=== PATIENT | female | born 1930 | race Caucasian/White ===

== ENCOUNTER → 2016-08-21 | Outpatient (CLI) | payer OTHER ==
[~2016-08-21] MED LIST: CLC100 PO; CLOP1TAB15 PO; DULO-24 PO; INSUINJ12 PO; LISI-461 PO; METO50TA16 PO; PRED1SUS3 OPR; SALI1SPR3; SODI2SOL OPL
[2016-08-21 08:36] LABS: ESTIMATED AVERAGE GLUCOSE 134 mg/dl; HA1C FLAG Normal (Normal)
== END ==
LOC: C.LABCC 08:18
PROVIDERS: ATTEND Internal Medicine
DX: E11.9 Type 2 diabetes mellitus without complications (principal)

== ENCOUNTER → 2016-12-12 | Outpatient (CLI) | payer OTHER ==
[2016-12-12 10:22] LABS: BASO % 0.7 %; BASO ABS # 0.05 K/uL (0-0.2); COMPLETE YES; EOS % 7.1 %; HEMATOCRIT 33.3 % (37-47); IG% 0.1 %; LYMPH % 32.4 %; LYMPH ABS # 2.23 K/uL (1.2-3.4); MEAN CELL VOLUME 83.5 fL (80-100); MEAN CORPUSCULAR HEMOGLOBIN 26.3 pg (25-34); MEAN CORPUSCULAR HGB CONC 31.5 g/dl (32-36); MONO % 10.9 %; NEUT % 48.8 %; PLATELET COUNT 206 K/uL (130-400); RED BLOOD COUNT 3.99 M/uL (4.2-5.4); WHITE BLOOD COUNT 6.88 K/uL (4.8-10.8)
[2016-12-12 10:32] LABS: ALT/SGPT 22 U/L (12-78); BLOOD UREA NITROGEN 25 mg/dl (7-18); BUN/CREATININE RATIO 22.9 (10-20); CARBON DIOXIDE 23 mmol/L (21-32); CHLORIDE 110 mmol/L (98-107); GLUCOSE 114 mg/dl (70-99); POTASSIUM 4.2 mmol/L (3.5-5.1); SODIUM 142 mmol/L (136-145)
[2016-12-12 10:35] LABS: ALB/GLOB RATIO 0.7 (0.9-2); ALKALINE PHOSPHATASE 68 U/L (45-117); AST/SGOT 25 U/L (15-37)
[2016-12-12 10:36] LABS: CALCIUM 8.9 mg/dl (8.5-10.1)
[2016-12-12 11:14] LABS: ESTIMATED AVERAGE GLUCOSE 131 mg/dl; HA1C FLAG Normal (Normal)
== END ==
LOC: C.LABCC 08:52
PROVIDERS: ATTEND Internal Medicine
DX: E11.9 Type 2 diabetes mellitus without complications (principal); I10 Essential (primary) hypertension

== ENCOUNTER → 2016-12-20 | Outpatient (CLI) | payer OTHER ==
[2016-12-20 08:47] LABS: ESTIMATED AVERAGE GLUCOSE 131 mg/dl; HA1C FLAG Normal (Normal)
== END ==
LOC: C.LABCC 08:02
PROVIDERS: ATTEND Internal Medicine
DX: E11.9 Type 2 diabetes mellitus without complications (principal)

== ENCOUNTER → 2017-06-04 | Outpatient (CLI) | payer OTHER ==
[2017-06-04 09:15] LABS: BASO % 0.6 %; BASO ABS # 0.04 K/uL (0-0.2); COMPLETE YES; EOS % 8.5 %; HEMATOCRIT 29.6 % (37-47); IG% 0.1 %; LYMPH % 34.6 %; LYMPH ABS # 2.35 K/uL (1.2-3.4); MEAN CELL VOLUME 75.9 fL (80-100); MEAN CORPUSCULAR HEMOGLOBIN 23.1 pg (25-34); MEAN CORPUSCULAR HGB CONC 30.4 g/dl (32-36); MEAN PLATELET VOLUME 10.2 fL (7.4-10.4); MONO % 10.9 %; NEUT % 45.3 %; PLATELET COUNT 195 K/uL (130-400)
[2017-06-04 09:27] LABS: ALT/SGPT 17 U/L (12-78); BLOOD UREA NITROGEN 26 mg/dl (7-18); BUN/CREATININE RATIO 21.6 (10-20); CALCIUM 8.7 mg/dl (8.5-10.1); CARBON DIOXIDE 27 mmol/L (21-32); CHLORIDE 108 mmol/L (98-107); CHOLESTEROL 155 mg/dl (0-200); CREATININE 1.22 mg/dl (0.60-1.20); GLUCOSE 108 mg/dl (70-99); POTASSIUM 4.4 mmol/L (3.5-5.1); SODIUM 141 mmol/L (136-145); TRIGLYCERIDES 166 mg/dl (0-150); VERY LOW DENSITY LIPOPROT CALC 33 mg/dl
[2017-06-04 09:38] LABS: ALB/GLOB RATIO 0.7 (0.9-2); ALKALINE PHOSPHATASE 69 U/L (45-117); AST/SGOT 21 U/L (15-37); CHOLESTEROL/HDL RATIO 4.8; FERRITIN 6.3 ng/ml (8.0-388.0); HDL CHOLESTEROL 32 mg/dl; LDL CHOLESTEROL CALCULATED 90 mg/dl; TOTAL IRON BINDING CAPACITY 303 mcg/dl (250-450)
[2017-06-04 10:14] LABS: ESTIMATED AVERAGE GLUCOSE 126 mg/dl; HA1C FLAG Normal (Normal)
== END ==
LOC: C.LABCC 08:42
PROVIDERS: ATTEND Internal Medicine
DX: D64.9 Anemia, unspecified (principal); E11.9 Type 2 diabetes mellitus without complications; E78.5 Hyperlipidemia, unspecified; I10 Essential (primary) hypertension; M19.90 Unspecified osteoarthritis, unspecified site

== ENCOUNTER → 2017-07-09 | Outpatient (CLI) | payer OTHER ==
[~2017-07-09] MED LIST changes: +SALI-3; -SALI1SPR3
[2017-07-09 10:00] LABS: BASO % 0.9 %; BASO ABS # 0.05 K/uL (0-0.2); EOS % 8.6 %; EOS ABS # 0.48 K/uL (0-0.5); HEMATOCRIT 37.3 % (37-47); HEMOGLOBIN 11.8 g/dL (12.0-16.0); IG# 0.01 K/uL (0.00-0.02); LYMPH % 36.3 %; LYMPH ABS # 2.02 K/uL (1.2-3.4); MEAN CELL VOLUME 82.9 fL (80-100); MEAN CORPUSCULAR HEMOGLOBIN 26.2 pg (25-34); MEAN CORPUSCULAR HGB CONC 31.6 g/dl (32-36); MONO % 8.6 %; MONO ABS # 0.48 K/uL (0.11-0.59); NEUT % 45.4 %; NEUT ABS # 2.52 K/uL (1.4-6.5); PLATELET COUNT 165 K/uL (130-400); RED CELL DISTRIBUTION WIDTH CV 21.7 % (11.5-14.5); RED CELL DISTRIBUTION WIDTH SD 65.4 fL (36.4-46.3); WHITE BLOOD COUNT 5.56 K/uL (4.8-10.8)
--- NOTE | 2017-07-18 13:35 | CODING QUERY MEDICAL NECESSITY ---
SUPPORTING DIAGNOSIS NEEDED A supporting diagnosis is required for the test/procedure performed on this patient in order for us to be reimbursed by the patient's insurance. Please provide a supporting diagnosis for the following test/procedure listed below next to the test name along with your signature. *If there is no additional diagnosis for this patient that would support the following test/procedure please document that below next to the test/procedure. Test(s)/Procedure(s) that require a supporting diagnosis: * VITAMIN D, 25-HYDROXY DIAGNOSIS: * FOLIC ACID DIAGNOSIS: Provider Signature: Date: Thank you Molly Garcia [employer] Information Management Once completed, please kindly fax back to [phone] For questions please call [phone]
== END ==
LOC: C.LABCC 09:10
PROVIDERS: ATTEND Internal Medicine
DX: D64.9 Anemia, unspecified (principal); E55.9 Vitamin D deficiency, unspecified

== ENCOUNTER → 2017-10-10 | Outpatient (CLI) | payer OTHER ==
[2017-10-10 17:53] LABS: INFLUENZA B ANTIGEN Neg for Influ B (NEG)
--- NOTE | 2017-10-22 08:31 | CODING QUERY NO DIAGNOSIS ---
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 Please assist us with providing a diagnosis/symptom for the test(s) below: A diagnosis/symptom was not documented on your Order. A valid diagnosis/symptom is required to bill all insurances. Please remember that we are unable to code a diagnosis of rule out, probable, possible, questionable, or suspected. Tests that require a diagnosis: DOS: 10/10/17 * INFLUENZA VIR A OR B ANTIGEN DIAGNOSIS: Provider Signature: Date: Thank you Molly Garcia [employer] Information Management Once completed, please kindly fax back to [phone] For questions please call [phone]
== END ==
LOC: C.LABCC 16:40
PROVIDERS: ATTEND Internal Medicine
DX: R05 Cough (principal); R50.9 Fever, unspecified

== ENCOUNTER → 2017-10-11 | Outpatient (CLI) | payer OTHER ==
[~2017-10-11] MED LIST changes: -SALI-3; +SALI1SPR3
[2017-10-11 10:03] LABS: BASO % 1.5 %; BASO ABS # 0.08 K/uL (0-0.2); EOS % 6.9 %; EOS ABS # 0.36 K/uL (0-0.5); HEMATOCRIT 38.3 % (37-47); HEMOGLOBIN 13.5 g/dL (12.0-16.0); IG# 0.01 K/uL (0.00-0.02); LYMPH % 31.2 %; LYMPH ABS # 1.64 K/uL (1.2-3.4); MEAN CORPUSCULAR HEMOGLOBIN 32.1 pg (25-34); MEAN CORPUSCULAR HGB CONC 35.2 g/dl (32-36); MEAN PLATELET VOLUME 9.9 fL (7.4-10.4); MONO ABS # 0.89 K/uL (0.11-0.59); NEUT % 43.2 %; NEUT ABS # 2.27 K/uL (1.4-6.5); PLATELET COUNT 140 K/uL (130-400); RED CELL DISTRIBUTION WIDTH CV 13.2 % (11.5-14.5); RED CELL DISTRIBUTION WIDTH SD 43.7 fL (36.4-46.3); WHITE BLOOD COUNT 5.25 K/uL (4.8-10.8)
[2017-10-11 10:11] LABS: BLOOD UREA NITROGEN 19 mg/dl (7-18); CALCIUM 8.3 mg/dl (8.5-10.1); CARBON DIOXIDE 28 mmol/L (21-32); GLUCOSE 110 mg/dl (70-99); POTASSIUM 4.3 mmol/L (3.5-5.1); SODIUM 139 mmol/L (136-145)
== END ==
LOC: C.LABCC 10:04
PROVIDERS: ATTEND Internal Medicine
DX: R05 Cough (principal); R50.9 Fever, unspecified

== ENCOUNTER → 2018-02-18 | Outpatient (CLI) | payer OTHER ==
[~2018-02-18] MED LIST changes: +SALI-3; -SALI1SPR3
[2018-02-18 10:11] LABS: ALBUMIN 2.7 gm/dl (3.4-5.0); ALKALINE PHOSPHATASE 62 U/L (45-117); ALT/SGPT 18 U/L (12-78); AST/SGOT 28 U/L (15-37); BLOOD UREA NITROGEN 20 mg/dl (7-18); CALCIUM 8.3 mg/dl (8.5-10.1); CARBON DIOXIDE 26 mmol/L (21-32); CHOLESTEROL 134 mg/dl (0-200); CREATININE 1.01 mg/dl (0.60-1.20); GLUCOSE 105 mg/dl (70-99); LDL CHOLESTEROL CALCULATED 71 mg/dl; POTASSIUM 4.3 mmol/L (3.5-5.1); SODIUM 140 mmol/L (136-145); TOTAL PROTEIN 6.3 gm/dl (6.4-8.2)
== END | disposition home or self-care (01) ==
LOC: C.LABCC 09:16
PROVIDERS: ATTEND Internal Medicine
DX: E11.9 Type 2 diabetes mellitus without complications (principal); I65.29 Occlusion and stenosis of unspecified carotid artery

== ENCOUNTER 2019-10-31 06:54 | Inpatient (IN) ==
[2019-10-31] MEDS ORDERED: RAPID SEQUENCE INDUCTION BAG ONE (07:09)
[2019-10-31 07:24] LABS: iSTAT Creatinine 0.8 mg/dl (0.6-1.3); iSTAT Hemoglobin 13.9 g/dl (12.0-16.0); iSTAT Ionized Calcium 1.11 mmol/l (1.12-1.32); iSTAT Potassium 4.2 mmol/L (3.3-5.0)
[2019-10-31] MEDS ORDERED: PANTOPRAZOLE BOLUS/DRIP 1 EA IV STA (07:24)
[2019-10-31] MEDS ORDERED: PANTOprazole 80 MG in DEXTROSE 5% 100 ML IV ONE (07:24)
[2019-10-31] MEDS ORDERED: ONDANSETRON INJ 2 MG/ML 2 ML VIAL IV STA (07:24)
[2019-10-31] MEDS ORDERED: STAT IV Infusion **Titration per Protocol STA ×2 (07:24→09:09)
[2019-10-31] MEDS ORDERED: SODIUM CHLORIDE 0.9% 1000ML 500 ML IV ONE (07:26)
[2019-10-31] MEDS ORDERED: SODIUM CHLORIDE 0.9% 1000ML 1,000 ML IV SCH (07:30)
[2019-10-31] MEDS ORDERED: fentaNYL DRIP 1,250 MCG/250 ML BAG IV SCH (07:30)
[2019-10-31] MEDS ORDERED: MIDAZOLAM HCL 125 MG/250 ML BAG IV SCH (07:30)
--- NOTE | 2019-10-31 07:47 | XRay Report ---
XR chest 1V portable HISTORY: 89 years-old Female post ETT acute respiratory failure COMPARISON: Chest radiograph 01/21/2010 TECHNIQUE: Portable supine AP view of the chest FINDINGS: Cardiac silhouette is enlarged, unchanged. Pulmonary vascular congestion with extensive mixed bilater al interstitial and alveolar opacities. Trace pleural effusions. Patient is slightly rotated. Mild ri ght diaphragmatic elevation. No pneumothorax. Endotracheal tube terminates 1.0 cm superior to the car ean. Degenerative changes of the shoulders and spine. Moderate to marked gaseous distention of the st omach. IMPRESSION: 1. Endotracheal tube overlies the midline, 1.0 cm superior to the oswaldo. Additionally, there is gase ous distention of the stomach. Confirmation of tracheal positioning recommended. 2. Cardiomegaly with extensive mixed bilateral interstitial and alveolar opacities suggestive of inte rstitial and alveolar pulmonary edema versus multifocal pneumonia. 3. Trace pleural effusions. ACT 112: Negative or not required by law. The above report was generated using voice recognition software. It may contain grammatical, syntax o r spelling errors. Electronically signed by: Juan Ramon Fuller M.D. 10/31/2019 7:45 AM
[2019-10-31 07:59] LABS: Basophils # (auto) 0.01 K/uL (0-0.2); Basophils % (auto) 0.1 %; Hematocrit (blood only) 42.7 % (37-47); Hemoglobin 13.4 g/dL (12.0-16.0); Immature Granulocytes # (auto) 0.05 K/uL (0.00-0.02); Immature Granulocytes % (auto) 0.7 %; Lymphocytes # (auto) 1.05 K/uL (1.2-3.4); Lymphocytes % (auto) 14.8 %; Mean Corpuscular Hemoglobin 31.5 pg (25-34); Mean Corpuscular Hgb Conc 31.4 g/dL (32-36); Mean Corpuscular Volume 100.5 fL (80-100); Mean Platelet Volume 11.3 fL (7.4-10.4); Monocytes # (auto) 0.19 K/uL (0.11-0.59); Monocytes % (auto) 2.7 %; Neutrophils # (auto) 5.81 K/uL (1.4-6.5); Neutrophils % (auto) 81.7 %; Nucleated RBC % (auto) 2.9 %; Platelet Count 188 K/uL (130-400); RDW Coefficient of Variation 16.8 % (11.5-14.5); RDW Standard Deviation 60.7 fL (36.4-46.3); Red Blood Count 4.25 M/uL (4.2-5.4); White Blood Count 7.11 K/uL (4.8-10.8)
[2019-10-31] MEDS: PANTOprazole 40 MG in DEXTROSE 5% 100 ML IV SCH ×2 (08:08→11:56)
[2019-10-31 08:14] LABS: INR 1.4 (0.9-1.1); Prothrombin Time 14.1 Seconds (9.0-12.0)
[2019-10-31 08:24] LABS: Alanine Aminotransferase 31 U/L (12-78); Albumin Globulin Ratio 0.3 (0.9-2); Albumin Level 1.6 gm/dl (3.4-5.0); Alkaline Phosphatase 147 U/L (45-117); Aspartate Aminotransferase 77 U/L (15-37); BUN Creatinine Ratio 23.9 (10-20); Bilirubin,Total 1.1 mg/dl (0.2-1); Blood Urea Nitrogen 29 mg/dl (7-18); Calcium 9.1 mg/dl (8.5-10.1); Carbon Dioxide 21 mmol/L (21-32); Chloride 110 mmol/L (98-107); Est GFR (African American) 46.7; Est GFR (Non-African American) 40.3; Globulin 4.7 gm/dl (2.5-4.0); Glucose 236 mg/dl (70-99); Potassium 4.3 mmol/L (3.5-5.1); Sodium 147 mmol/L (136-145); Total Protein 6.3 gm/dl (6.4-8.2)
[2019-10-31] MEDS ORDERED: SODIUM CHLORIDE 0.9% 1000ML 1,000 ML IV ONE (08:25)
[2019-10-31 08:30] LABS: Polychromasia 1+
[2019-10-31] MEDS ORDERED: SODIUM CHLORIDE 0.9% 500 ML IV ONE (09:02)
[2019-10-31] MEDS ORDERED: SODIUM CHLORIDE 0.9% 250 ML IV PRN ×3 (09:07→12:30)
[2019-10-31 09:18] LABS: iSTAT Creatinine 0.8 mg/dl (0.6-1.3); iSTAT Hemoglobin 9.9 g/dl (12.0-16.0); iSTAT Ionized Calcium 1.09 mmol/l (1.12-1.32); iSTAT Potassium 3.8 mmol/L (3.3-5.0)
--- NOTE | 2019-10-31 09:18 | History & Physical Report ---
Date of Service October 31, 2019 Assessment & Plan (1) Hemorrhagic shock: Patient is critically unwell and prognosis is poor. Patient currently for full resuscitation as per limited paperwork sent from [facility]. Discussed case with Dr Bird and she is being admitted to ICU for ongoing c are. 1st unit of blood transfusing with repeat Hgb prior to this 9.9. Vasopressin and Phenylephrine as per ICU management. (2) Hypothermia: Secondary to above. Bear hugger placed in ER. (3) Aspiration pneumonitis: Suspected aspiration of hematemesis noted on CXR. (4) Elevated INR: Unclear etiology of this which was stable since October 14. (5) Paroxysmal atrial fibrillation: Anticoagulation contraindicated. In setting of severe illness. Now back in sinus rhythm. (6) Type 2 diabetes mellitus: HbA1C 4.7 in June suggests overtreatment. 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 Insulin management as per ICU. Admission and Anticipated Discharge Date Admission Date: 10/31/2019 History of Present Illness Chief Complaint: Hematemesis, hypoxia, Unresponsive Primary Care Provider: [facility] Darren Rangel is an 89 year old female with resident of [facility] who presented to the ER with concerns for hematemesis and hypoxia. Unable to get a history from patient who was intubated and sedated in the ER therefore history obtained from [facility] hand over and ER physician. She has been having emesis for approximately 1 week. HIDA scan - sludge and thickened gall bladder. Found this morning alert and orientated but unable to understand her talking. O2 sats were 74% on room air. Concern about aspirating. She is usually on a thicken ed liquid diet. Around 4am this morning she had coffee ground emesis. EMS noted patient to be in A. fib in 130s. She was placed on CPAP. In the ER she was obtunded, hypoxic and hypotensive. Sedated and intubated and given 1.5L bolus of normal saline. However despite this her blood pressure remained 60/44. Patient seen around the same time as Dr Bird who will be starting patient on vasopressors. 1 unit blood transfusion ordered by ER when seen. Known prior CVA. Allergies Allergy/AdvReac Type Severity Reaction Status Date / Time aspirin Allergy Mild Verified 10/31/19 08:38 Sulfa (Sulfonamide Allergy Unknown unknown Verified 10/31/19 08:38 Antibiotics) trimethoprim Allergy Unknown . Verified 10/31/19 08:38 Home Medications Home Medications Medication Instructions Recorded Confirmed Type cholecalciferol (vitamin D3) 50 mcg PO DAILY 10/31/19 10/31/19 History [Vitamin D3] docusate sodium 100 mg PO DAILY 10/31/19 10/31/19 History duloxetine 20 mg PO DAILY 10/31/19 10/31/19 History ferrous sulfate 325 mg PO BID 10/31/19 10/31/19 History folic acid 1 mg PO DAILY 10/31/19 10/31/19 History insulin detemir U-100 [Levemir 5 unit SUBCUT HS 10/31/19 10/31/19 History U-100 Insulin] insulin lispro [Humalog U-100 1 sliding scale dose SUBCUT 10/31/19 10/31/19 History Insulin] USEASDIRECTD lisinopril 5 mg PO DAILY 10/31/19 10/31/19 History metoclopramide HCl 5 mg PO ACHS 10/31/19 10/31/19 History metoprolol tartrate 25 mg PO DAILY 10/31/19 10/31/19 History ondansetron HCl [Zofran] 4 mg PO Q6H PRN 10/31/19 10/31/19 History sennosides-docusate sodium 1 tab-cap PO BID 10/31/19 10/31/19 History [Senokot-S] sodium chloride [Deep Sea Nasal] 2 spray INTRANASAL BID 10/31/19 10/31/19 History Past Med/Surg History Medical History (Updated 10/31/19 @ 14:52 by Crispin Bird DO) GI bleed (Inactive) Social History Communication Ability: On vent Current Living Situation: Intermediate Feels Safe at Home: Yes Smoking Status: Unknown if ever smoked Review of Systems Review of Systems: Unobtainable due to endotracheal tube and Unobtainable due to reduced consciousness Physical Exam Constitutional: + obese; no acute distress Eyes: + conjunctival abnormality (pale); normal pupil size (pupils equal) Neck: trachea midline intubated Respiratory: Auscultation: + rhonchi (b/l, equal breath sounds) Cardiovascular: Rate/Rhythm: regular rhythm and + tachycardic Heart Sounds: no murmur Extremities: + abnormal capillary refill (> 4 seconds peripheral and central) and no pedal edema Gastrointestinal (Abdomen): Inspection/Auscultation: + abnormal bowel sounds (absent) Percussion/Palpation: abdomen soft Skin: + pallor (cyanotic) Neurologic: + not awake unable to assess full neuro exam due to sedation Psychiatric: Orientation: + not alert Results & Data Results & Data ([facility]) Vital Signs (Past 12 Hours) Vital Signs Temp Pulse Pulse Resp BP BP Pulse Ox 10/31/19 09:10 64 55/37 L 93 10/31/19 09:05 63 53/36 L 88 L 10/31/19 09:00 59 L 54/35 L 92 10/31/19 08:57 87 19 55/37 L 90 10/31/19 08:56 88 55/37 L 89 L 10/31/19 08:45 85 60/44 L 100 10/31/19 08:40 84 62/44 L 100 10/31/19 08:35 96 H 102 H 16 75/36 L 75/36 L 99 10/31/19 08:32 34.9 C L 10/31/19 08:30 94 H 65/48 L 100 10/31/19 08:25 34.9 C L 91 H 71/45 L 100 10/31/19 08:16 96 H 99/57 L 98 10/31/19 08:10 98 H 85/56 L 100 10/31/19 08:05 87 87/56 L 100 10/31/19 08:00 102 H 74/56 L 100 10/31/19 07:55 99 H 82/58 L 100 10/31/19 07:53 104 H 16 99 10/31/19 07:51 99 H 93 H 19 67/52 L 67/52 L 99 10/31/19 07:31 125 H 21 52/35 L 93 10/31/19 07:25 124 H 16 95 10/31/19 07:19 117 H 20 95 10/31/19 07:00 134 H 25 H Diagnostic Findings ABDOMEN AND PELVIS CT WITH IV CONTRAST IMPRESSION: 1. Right greater than left small pleural effusions with bibasilar consolidative and groundglass opacities suggestive of multifocal pneumonia admixed with atelectasis. 2. Multiple prominent loops of small bowel with air-fluid levels is suggestive of enteritis or ileus. There is no small bowel obstruction or pneumoperitoneum. 3. Heterogeneous appearance of the liver with probable hepatic steatosis. Correlate with LFTs. 4. Cholelithiasis without sonographic evidence of acute cholecystitis. 5. Enteric tube distal tip terminates within the gastric antrum. 6. Venous catheter of the left external iliac vein. 7. Additional findings as above. CT head/brain wo con IMPRESSION: 1. Moderate area of decreased attenuation involving the left parietal lobe with blurring of the jose-white interface is new from comparison and is suspicious for an acute or subacute infarct superimposed on a chronic infarct. Correlate with clinical presentation. 2. 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 XR chest 1V portable IMPRESSION: 1. Endotracheal tube overlies the midline, 1.0 cm superior to the oswaldo. Additionally, there is gaseous distention of the stomach. Confirmation of tracheal positioning recommended. 2. Cardiomegaly with extensive mixed bilateral interstitial and alveolar opacities suggestive of interstitial and alveolar pulmonary edema versus multifocal pneumonia. 3. Trace pleural effusions. ECG Indication: altered mental status Rate (beats per minute): 84 Rhythm: normal sinus Findings: + T-wave inversion (latera) Comparison ECG Date: from (10/31/2019) Change: the following changes noted (sinus rhythm replaced A. Fib) Code Status & VTE Plan Code Status Full as per [facility] hand over paperwork VTE Prophylaxis Plan VTE Prophylaxis will be ordered: Yes Reason for no VTE drug order: Contraindicated PG Care Time/CCT Total # of Minutes Spent Total Time Spent with Patient: Total time spent is greater than 50% in coordination of care (as documented) at patient's floor/unit and/or counseling patient: Coding Level of Care Code 87666 Initial Inpt Care Lvl 3 Diagnoses Hemorrhagic shock R57.8 Hypothermia T68.XXXA Aspiration pneumonitis J69.0 Elevated INR R79.1 Paroxysmal atrial fibrillation I48.0 Type 2 diabetes mellitus E11.9
[2019-10-31] MEDS: PHENYLEPHRINE HCL 20 MG in DEXTROSE 5% 500 ML IV SCH ×2 (09:25→11:55)
[2019-10-31] MEDS: VASOPRESSIN 20 UNITS in 0.9 % SODIUM CHLORIDE 100 ML IV SCH ×2 (09:25→11:55)
[2019-10-31] MEDS ORDERED: IOVERSOL 100ml IV PRN (11:04)
--- NOTE | 2019-10-31 11:14 | Communication Note ---
Date of Service: October 31, 2019 Patient was reevaluated in the ER. We were considering upper endoscopy given the question of bloody aspirate from her oropharyngeal tube. Unfortunately the patient's mean arterial pressure with us to support and a recent transfusion is still below 50. I am not certain that the patient can tolerate an upper endoscopy at the present time and would recommend volume resuscitation IV Protonix and empiric therapy with octreotide. Once the patient's pressure has improved perhaps we can consider endoscopic evaluation. Given the clinical scenario this will most likely be tomorrow
--- NOTE | 2019-10-31 11:18 | CT Scan Report ---
CT head/brain wo con CLINICAL HISTORY: 89 years-old Female with AMS. Acutely altered mental status TECHNIQUE: Multiple axial CT images of the head were obtained without contrast. A dose lowering tech nique was utilized adhering to the principles of ALARA. COMPARISON: Head CT 01/21/2010 FINDINGS: No acute intracranial hemorrhage, midline shift, intracranial mass, hydrocephalus, or abnormal extra- axial collection. Age-related involutional changes. Encephalomalacia of the left greater than right f rontal lobes, left lentiform nuclei and left thalamus from remote infarcts/wallerian degeneration. Mi ld associated ex vacuo ventriculomegaly of the posterior horn left lateral ventricle. Hypodensity wit h blurring of the jose-white interface involves the left parietal lobe on image 16 series 2, new from comparison. This overall measures up to approximately 4.8 x 3.4 cm. Encephalomalacia is also noted w ithin this distribution. The calvarium is intact. Mild mucosal thickening with small air-fluid level of the right maxillary sinus compatible with acute sinusitis. Trace mastoid effusions. Soft tissues and orbits are unremarka ble. Prior bilateral lens replacement. IMPRESSION: 1. Moderate area of decreased attenuation involving the left parietal lobe with blurring of the jose- white interface is new from comparison and is suspicious for an acute or subacute infarct superimpose d on a chronic infarct. Correlate with clinical presentation. 2. Age-related involutional changes with advanced chronic microvascular ischemic disease and remote i nfarcts as above. ACT 112: Negative or not required by law. The above report was generated using voice recognition software. It may contain grammatical, syntax o r spelling errors. Electronically signed by: Juan Ramon Fuller M.D. 10/31/2019 11:16 AM
[2019-10-31] MEDS ORDERED: ALBUT/IPRATROP 3MG/0.5MG NEB 3 ML VIAL INH PRN (11:26)
[2019-10-31] MEDS ORDERED: ICU PROTOCOL FOR HYPERGLYCEMIA PRN (11:26)
[2019-10-31] MEDS ORDERED: NORMOSOL-R 1,000 ML IV SCH (11:26)
--- NOTE | 2019-10-31 11:30 | CT Scan Report ---
ABDOMEN AND PELVIS CT WITH IV CONTRAST CT DOSE: 1544.36 mGy.cm HISTORY: Acute GI bleed. GIB TECHNIQUE: Multiaxial CT images of the abdomen and pelvis were performed following the IV administrat ion of 94 cc of Optiray 320, A dose lowering technique was utilized adhering to the principles of AL KELSEY. COMPARISON STUDY: None. FINDINGS: Small right greater than left pleural effusions with right greater left bibasilar consolidation, grou ndglass opacities and air bronchograms. Study is limited secondary to positioning of the upper extrem ities and mild motion artifact. No pneumatosis or pneumoperitoneum. Imaged inferior cardiac chambers are mildly enlarged. Extensive coronary artery calcifications. Scattered calcified granulomata of the spleen. Mild thickening of the adrenal glands suggests hyperpl stefano. Mild generalized pancreatic atrophy. Cholelithiasis without CT evidence of acute cholecystitis or biliary ductal dilation. Heterogeneous appearance of the liver with a mottled appearance and proba ble hepatic steatosis. Patency of the hepatic and portal veins. Diffuse cortical thinning of the kidn eys. There are several scattered small subcentimeter hypodensities of the kidneys and just a probable cysts. Renal sinus cysts are also present without hydronephrosis. Decompressed urinary bladder with Jay catheter in place. Prominence of the uterine fundus is suggestive of fibroid uterus. No adnexal mass lesion. Extensive mixed plaque of the abdominal aorta without aneurysm. 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 Additionally, there is occlusion versus high-grade stenosis involving the right profunda femoris artery. Catheter of the left thigh is noted with distal tip terminating i n the left external iliac vein. No adenopathy. Mild wall thickening of the distal esophagus. An enteric tube is present with distal tip terminating within the gastric antrum. Small to moderate duodenal diverticulum. Multiple prominent loops of air a nd fluid-filled small bowel are noted measuring up to 2.8 cm. No small bowel obstruction. Several loo ps of decompressed large bowel with air-fluid levels of the right hemicolon suggestive of diarrheal i llness. The appendix is not definitively seen. No bowel thickening. No ascites or mesenteric inflamma tion. Degenerative changes of the spine, pelvis and hips. IMPRESSION: 1. Right greater than left small pleural effusions with bibasilar consolidative and groundglass opaci ties suggestive of multifocal pneumonia admixed with atelectasis. 2. Multiple prominent loops of small bowel with air-fluid levels is suggestive of enteritis or ileus. There is no small bowel obstruction or pneumoperitoneum. 3. Heterogeneous appearance of the liver with probable hepatic steatosis. Correlate with LFTs. 4. Cholelithiasis without sonographic evidence of acute cholecystitis. 5. Enteric tube distal tip terminates within the gastric antrum. 6. Venous catheter of the left external iliac vein. 7. Additional findings as above. ACT 112: Negative or not required by law. The above report was generated using voice recognition software. It may contain grammatical, syntax o r spelling errors. Electronically signed by: Juan Ramon Fuller M.D. 10/31/2019 11:29 AM
[2019-10-31] MEDS ORDERED: PHENYLEPHRINE HCL 40 MG in DEXTROSE 5% 500 ML IV SCH (12:15)
[2019-10-31] MEDS: PHENYLEPHRINE HCL 80 MG in DEXTROSE 5% 500 ML IV SCH ×2 (12:38→14:53)
[2019-10-31] MEDS ORDERED: NOREPINEPHRINE (Adult) 8 MG in DEXTROSE 5% 500 ML IV SCH (12:45)
[2019-10-31] MEDS ORDERED: NOREPINEPHRINE (Adult STAT Only) 4 MG in D5W 250 ML IV SCH (12:45)
[2019-10-31] MEDS ORDERED: VASOPRESSIN IV SCH (13:00)
[2019-10-31] MEDS ORDERED: SODIUM CHLORIDE 0.9% IV SCH (13:00)
[2019-10-31] MEDS ORDERED: PNEUMOCOCCAL Polysaccharide Vaccine 25mcg/0.5mL vial/Syr IM ONE (13:30)
[2019-10-31] MEDS ORDERED: INFLUENZA Vaccine HIGH DOSE 65+yrs 0.5 mL Syr IM ONE (13:30)
--- NOTE | 2019-10-31 13:39 | Communication Note ---
Date of Service: October 31, 2019 The patient stabilized enough for upper endoscopy late this afternoon. Endoscopy was done in the ICU, consent was obtained from the patient's daughter Mrs. Thompson. Findings Normal esophagus Blood noted within the stomach and proximal duodenum No obvious source of bleeding could be identified No obvious ulcerations were seen Impression: Patient presents with brisk upper gastrointestinal bleeding without an obvious etiology found on endoscopy this afternoon. Given the scenario I would wonder about a Dula Bronson lesion as a possible cause of her symptoms. Recommendations Continue with PPI drip Patient's condition is guarded and the suspected aspiration prior to admission Consider referral to a tertiary center if stability permits
--- NOTE | 2019-10-31 13:45 | GI REPORT ---
Patient Name: Darren Rangel Procedure Date: 10/31/2019 1:22 PM Date of : 1930 Admit Type: Inpatient Age: 89 Gender: Female Attending MD: Riley Martínez DO Procedure: Upper GI endoscopy Providers: Riley Martínez DO Referring MD: Femi Young Md Indications: Active gastrointestinal bleeding Medicines: None, patient intubated / monitored by ICU service. Complications: No immediate complications. Estimated blood loss: Minimal. Estimated Blood Loss: Estimated blood loss was minimal. Procedure: Pre-Anesthesia Assessment: - Prior to the procedure, a History and Physical was performed, and patient medications, allergies and sensitivities were reviewed. The patient's tolerance of previous anesthesia was reviewed. - The patient is unable to give consent secondary to the patient's altered mental status. The alternatives, risks and benefits of the procedure were discussed at length with the patient's daughter. The patient's proxy verbalized understanding of the risks as well as the alternatives and wished to proceed with the procedure. - Patient identification and proposed procedure were verified prior to the procedure by the physician and the nurse. The procedure was verified in the procedure room. - Pre-procedure physical examination revealed no contraindications to sedation. - ASA Grade Assessment: V - A moribund patient who is not expected to survive without the operation. - After reviewing the risks and benefits, the patient was deemed in satisfactory condition to undergo the procedure. After obtaining informed consent, the endoscope was passed under direct vision. Throughout the procedure, the patient's blood pressure, pulse, and oxygen saturations were monitored continuously. The Endoscope was introduced through the mouth, and advanced to the third part of duodenum. The upper GI endoscopy was accomplished without difficulty. The patient tolerated the procedure poorly due to the patient's cardiovascular instability (arrhythmia). Findings: The examined esophagus was normal. Red blood was found in the gastric fundus and in the gastric antrum. I was able to lavage the stomach with the endoscope and could not identify an actively bleeding source. Red blood was found in the duodenal bulb, in the second portion of the duodenum and in the third portion of the duodenum. I was able to evalaute the duodenum after irrrigation, no bleeding site identified. Impression: - Normal esophagus. - Red blood in the gastric antrum and in the gastric fundus. - Blood in the duodenal bulb, in the second portion of the duodenum and in the third portion of the duodenum. - No specimens collected. Recommendation: - Give Protonix (pantoprazole): 8 mg/hr IV by continuous infusion. 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 - If stability permits would consider referral to a center with IR support. Riley Martínez D.O. Riley Martínez, DO 10/31/2019 1:45:03 PM This report has been signed electronically. Note Initiated On: 10/31/2019 1:22 PM Number of Addenda: 0 I attest to the content of the Intraoperative Record and orders documented therein, exceptions below {[id number]}
[2019-10-31 13:49] LABS: iSTAT Art Bld Gas pCO2 Correct 60 mmHg (35-46); iSTAT Art Bld Gas pH Corrected 6.715 (7.35-7.45); iSTAT Arterial Blood Gas HCO3 8 meg/L (19-24); iSTAT Arterial Blood Gas pCO2 69 mmHg (35-46); iSTAT Arterial Blood Gas pH 6.69 (7.35-7.45); iSTAT Arterial Blood Gas pO2 53 mmHg (80-95); iSTAT Arterial Blood Gas pO2 C 43; iSTAT Carbon Dioxide 10 mmol/L (24-31); iSTAT Hematocrit 28 % (37-47); iSTAT Hemoglobin 9.5 g/dl (12.0-16.0); iSTAT Potassium 5.2 mmol/L (3.3-5.0); iSTAT Site Art Line; iSTAT Sodium 134 mmol/L (135-144)
--- NOTE | 2019-10-31 13:52 | Emergency Department Note ---
History of Present Illness General Chief complaint: GI Assessment Time Seen by Provider: 10/31/19 07:14 Source: patient, EMS and RN notes reviewed Mode of arrival: EMS Limitations: altered mental status and clinical acuity History of Present Illness Provider complaint: GI bleed, altered mental status, respiratory failure Onset (ago): day(s) 3 This patient is an 89-year-old female who presents to the emergency department from [facility] with complaints of GI bleed and vomiting per nursing staff. Patient is currently obtunded and hypoxic, not answering questions. She is noted to be hypotensive. Home Medications Home Medications Medication Instructions Recorded Confirmed Type cholecalciferol (vitamin D3) 50 mcg PO DAILY 10/31/19 10/31/19 History [Vitamin D3] docusate sodium 100 mg PO DAILY 10/31/19 10/31/19 History duloxetine 20 mg PO DAILY 10/31/19 10/31/19 History ferrous sulfate 325 mg PO BID 10/31/19 10/31/19 History folic acid 1 mg PO DAILY 10/31/19 10/31/19 History insulin detemir U-100 [Levemir 5 unit SUBCUT HS 10/31/19 10/31/19 History U-100 Insulin] insulin lispro [Humalog U-100 1 sliding scale dose SUBCUT 10/31/19 10/31/19 History Insulin] USEASDIRECTD lisinopril 5 mg PO DAILY 10/31/19 10/31/19 History metoclopramide HCl 5 mg PO ACHS 10/31/19 10/31/19 History metoprolol tartrate 25 mg PO DAILY 10/31/19 10/31/19 History ondansetron HCl [Zofran] 4 mg PO Q6H PRN 10/31/19 10/31/19 History sennosides-docusate sodium 1 tab-cap PO BID 10/31/19 10/31/19 History [Senokot-S] sodium chloride [Deep Sea Nasal] 2 spray INTRANASAL BID 10/31/19 10/31/19 History Allergies Allergy/AdvReac Type Severity Reaction Status Date / Time aspirin Allergy Mild Verified 10/31/19 08:38 Sulfa (Sulfonamide Allergy Unknown unknown Verified 10/31/19 08:38 Antibiotics) trimethoprim Allergy Unknown . Verified 10/31/19 08:38 Past Med/Surg History Social History (Updated 10/31/19 @ 13:43 by Stephanie Mcgowan MD) Current Living Situation: Longterm Feels Safe at Home: Yes Smoking Status: Unknown if ever smoked Review of Systems See HPI for pertinent positives & negatives. and A total of 10 systems reviewed and were otherwise negative Physical Exam Vital Signs Vital Signs - 24 hr 10/31/19 07:00 10/31/19 07:19 10/31/19 07:25 Temperature Temperature Source Pulse Rate 134 H 124 H Pulse Rate [Apical] 117 H Pulse Rate from SpO2 Sensor Pulse Rhythm Irregular Pulse Rhythm [Apical] Irregular Respiratory Rate 25 H 20 16 Respiratory Effort / Characteristics Spontaneous Mechanically Ventilated Blood Pressure Blood Pressure [Left Radial Artery] Blood Pressure Mean Blood Pressure Mean [Left Radial Artery] Pulse Oximetry 95 95 Oxygen Delivery Method Mechanical Vent Fraction of Inspired Oxygen 100 100 Sepsis Recent Fever Within 48 Hours No Sepsis New/Unexplained Change in Mental Status Yes Sepsis Action Taken by Nursing No Action Required End-Tidal CO2 37 End Tidal CO2 (18-54mmHg) 10/31/19 07:31 10/31/19 07:51 10/31/19 07:53 Temperature Temperature Source Pulse Rate 99 H 104 H Pulse Rate [Apical] 125 H 93 H Pulse Rate from SpO2 Sensor 69 Pulse Rhythm Pulse Rhythm [Apical] Irregular Respiratory Rate 21 19 16 Respiratory Effort / Characteristics Mechanically Ventilated Mechanically Ventilated Blood Pressure 67/52 L Blood Pressure [Left Radial Artery] 52/35 L 67/52 L Blood Pressure Mean 56 Blood Pressure Mean [Left Radial Artery] 40 57 Pulse Oximetry 93 99 99 Oxygen Delivery Method Mechanical Vent Mechanical Vent Mechanical Vent Fraction of Inspired Oxygen Sepsis Recent Fever Within 48 Hours Sepsis New/Unexplained Change in Mental Status Sepsis Action Taken by Nursing End-Tidal CO2 34 End Tidal CO2 (18-54mmHg) 36 10/31/19 07:55 10/31/19 08:00 10/31/19 08:05 Temperature Temperature Source Pulse Rate 99 H 102 H 87 Pulse Rate [Apical] Pulse Rate from SpO2 Sensor 82 90 81 Pulse Rhythm Pulse Rhythm [Apical] Respiratory Rate Respiratory Effort / Characteristics Blood Pressure 82/58 L 74/56 L 87/56 L Blood Pressure [Left Radial Artery] Blood Pressure Mean 65 60 71 Blood Pressure Mean [Left Radial Artery] Pulse Oximetry 100 100 100 Oxygen Delivery Method Mechanical Vent Mechanical Vent Mechanical Vent Fraction of Inspired Oxygen Sepsis Recent Fever Within 48 Hours Sepsis New/Unexplained Change in Mental Status Sepsis Action Taken by Nursing End-Tidal CO2 38 38 38 End Tidal CO2 (18-54mmHg) 10/31/19 08:10 10/31/19 08:16 10/31/19 08:25 Temperature 34.9 C L Temperature Source Rectal Pulse Rate 98 H 96 H 91 H Pulse Rate [Apical] Pulse Rate from SpO2 Sensor 85 96 H Pulse Rhythm Pulse Rhythm [Apical] Respiratory Rate Respiratory Effort / Characteristics Blood Pressure 85/56 L 99/57 L 71/45 L Blood Pressure [Left Radial Artery] Blood Pressure Mean 64 71 48 Blood Pressure Mean [Left Radial Artery] Pulse Oximetry 100 98 100 Oxygen Delivery Method Fraction of Inspired Oxygen Sepsis Recent Fever Within 48 Hours Sepsis New/Unexplained Change in Mental Status Sepsis Action Taken by Nursing End-Tidal CO2 38 38 38 End Tidal CO2 (18-54mmHg) 10/31/19 08:30 10/31/19 08:32 10/31/19 08:35 Temperature 34.9 C L Temperature Source Rectal Pulse Rate 94 H 96 H Pulse Rate [Apical] 102 H Pulse Rate from SpO2 Sensor 83 68 Pulse Rhythm Pulse Rhythm [Apical] Respiratory Rate 16 Respiratory Effort / Characteristics Mechanically Ventilated Blood Pressure 65/48 L 75/36 L Blood Pressure [Left Radial Artery] 75/36 L Blood Pressure Mean 60 42 Blood Pressure Mean [Left Radial Artery] 49 Pulse Oximetry 100 99 Oxygen Delivery Method Mechanical Vent Fraction of Inspired Oxygen Sepsis Recent Fever Within 48 Hours Sepsis New/Unexplained Change in Mental Status Sepsis Action Taken by Nursing End-Tidal CO2 37 27 End Tidal CO2 (18-54mmHg) 34 10/31/19 08:40 10/31/19 08:45 10/31/19 08:56 Temperature Temperature Source Pulse Rate 84 85 88 Pulse Rate [Apical] Pulse Rate from SpO2 Sensor 84 86 88 Pulse Rhythm Pulse Rhythm [Apical] Respiratory Rate Respiratory Effort / Characteristics Blood Pressure 62/44 L 60/44 L 55/37 L Blood Pressure [Left Radial Artery] Blood Pressure Mean 49 45 42 Blood Pressure Mean [Left Radial Artery] Pulse Oximetry 100 100 89 L Oxygen Delivery Method Fraction of Inspired Oxygen Sepsis Recent Fever Within 48 Hours Sepsis New/Unexplained Change in Mental Status Sepsis Action Taken by Nursing End-Tidal CO2 32 35 26 End Tidal CO2 (18-54mmHg) 10/31/19 08:57 10/31/19 09:00 10/31/19 09:05 Temperature Temperature Source Pulse Rate 59 L 63 Pulse Rate [Apical] 87 Pulse Rate from SpO2 Sensor 60 64 Pulse Rhythm Pulse Rhythm [Apical] Regular Respiratory Rate 19 Respiratory Effort / Characteristics Mechanically Ventilated Blood Pressure 54/35 L 53/36 L Blood Pressure [Left Radial Artery] 55/37 L Blood Pressure Mean 41 41 Blood Pressure Mean [Left Radial Artery] 43 Pulse Oximetry 90 92 88 L Oxygen Delivery Method Mechanical Vent Fraction of Inspired Oxygen Sepsis Recent Fever Within 48 Hours Sepsis New/Unexplained Change in Mental Status Sepsis Action Taken by Nursing End-Tidal CO2 27 29 End Tidal CO2 (18-54mmHg) 26 Vital signs reviewed. Hypotensive, hypoxic, tachycardic General: Critically ill-appearing 89 year old female, in no significant distress. HEENT: No scleral icterus, PERRLA, neck supple. Atraumatic. Cardiovascular: Rapid and irregular, no extra sounds Pulmonary: Coarse breath sounds bilaterally with rhonchi throughout. Diminished respiratory effort. Pulse ox undetectable. Abdomen: Soft, mildly distended. Musculoskeletal: Atraumatic, minimal peripheral edema. Right upper extremity noted to be contracted. Neurologic: Obtunded, nonverbal, no response to painful stimuli Skin: Warm, dry, no rash but diminished cap refill. Procedures Central Line Placement Left Femoral: Time Out Performed: Yes Patient Placed on Monitor/Pulse Ox: Yes MD Prep: mask, gown, gloves and other (cap, face shield) Central Line Prep: Chlorhexidine scrub and sterile drapes applied Ultrasound Used for Placement: Yes Central Line Lumen Inserted: triple Post Procedure: sutured in place, good blood return, all ports aspirated, flushed, capped and sterile dressing applied Patient Tolerated Procedure: no complications Intubation Time out performed: Yes sedative: Etomidate Mg Given: 10 paralytic: Succinylcholine Mg Given: 100 Laryngoscope: Genevieve ET Tube Size: 7.5 ET Tube Uncuffed: No Tube Secured Depth (cm): 22 Tube Secured Location: teeth Tube Placement Confirmation: visualized tube passing through cords Patient Tolerated Procedure: well Intubation Complications: other (vomiting dark coffee ground liquids) Course Administered Medications Sodium Chloride (Nss 1000ml) 1,000 mls @ 100 mls/hr IV .Q10H SUZANNE Stop: 10/31/19 17:29 Last Admin: 10/31/19 10:00 Dose: 100 mls/hr Documented by: [id number] Pantoprazole Sodium 40 mg/ (Dextrose) 100 mls @ 20 mls/hr IV Q5H SUZANNE Stop: 11/30/19 07:29 Last Admin: 10/31/19 11:56 Dose: 20 mls/hr Documented by: [id number] Infusion: 10/31/19 11:56 Dose: 20 mls/hr Documented by: [id number] Admin: 10/31/19 08:08 Dose: 20 mls/hr Documented by: [id number] Parenteral Electrolytes (Normosol-R) 1,000 mls @ 80 mls/hr IV .[id number] SUZANNE Stop: 11/30/19 11:25 Last Admin: 10/31/19 11:56 Dose: 80 mls/hr Documented by: [id number] Phenylephrine HCl 80 mg/ (Dextrose) 508 mls @ 40.268 mls/hr IV .[id number] SUZANNE; Protocol Stop: 11/30/19 12:29 Last Admin: 10/31/19 12:38 Dose: 10 mcg/kg/min, 309.8 mls/hr Documented by: [id number] Cosigned by: [id number] Norepinephrine Bitartrate 4 mg (/ Dextrose) 254 mls @ 15.488 mls/hr IV .[id number] SUZANNE; Protocol Stop: 10/31/19 14:45 Last Admin: 10/31/19 12:45 Dose: 0.05 mcg/kg/min, 15.5 mls/hr Documented by: [id number] Cosigned by: [id number] Ioversol (Optiray 320 100ml) 94 ml IV ONCE PRN PRN Reason: Interaction Checking Stop: 11/04/19 11:03 Last Admin: 10/31/19 11:04 Dose: 94 ml Documented by: [id number] Discontinued Medications Pantoprazole Sodium (Protonix Bolus/Drip) 0 mls @ 1 mls/hr IV ONE STA Stop: 10/31/19 07:25 Last Admin: 10/31/19 08:09 Dose: Not Given Documented by: [id number] Pantoprazole Sodium 80 mg/ (Dextrose) 120 mls @ 400 mls/hr IV NOW ONE Stop: 10/31/19 07:41 Last Infusion: 10/31/19 08:08 Dose: 0 mls/hr Documented by: [id number] Admin: 10/31/19 07:47 Dose: 400 mls/hr Documented by: [id number] Sodium Chloride (Nss 1000ml) 500 mls @ 999 mls/hr IV .Q31M ONE Stop: 10/31/19 07:56 Last Infusion: 10/31/19 08:08 Dose: 0 mls/hr Documented by: [id number] Admin: 10/31/19 07:30 Dose: 999 mls/hr Documented by: [id number] Sodium Chloride (Nss 1000ml) 1,000 mls @ 999 mls/hr IV .Q1H1M ONE Stop: 10/31/19 09:25 Last Infusion: 10/31/19 09:06 Dose: 0 mls/hr Documented by: [id number] Admin: 10/31/19 08:15 Dose: 999 mls/hr Documented by: [id number] Sodium Chloride (Nss) 500 mls @ 999 mls/hr IV .Q31M ONE Stop: 10/31/19 09:32 Last Infusion: 10/31/19 09:55 Dose: 0 mls/hr Documented by: [id number] Admin: 10/31/19 09:03 Dose: 999 mls/hr Documented by: [id number] Phenylephrine HCl 20 mg/ (Dextrose) 502 mls @ 159.169 mls/hr IV .Q3H10M [facility]; Protocol Stop: 11/30/19 09:14 Last Admin: 10/31/19 11:55 Dose: 6 mcg/kg/min, 734.6 mls/hr Documented by: [id number] Cosigned by: [id number] Titration: 10/31/19 11:55 Dose: 1.3 mcg/kg/min, 159.2 mls/hr Documented by: [id number] Cosigned by: [id number] Titration: 10/31/19 10:41 Dose: 1.3 mcg/kg/min, 159.2 mls/hr Documented by: [id number] Titration: 10/31/19 10:21 Dose: 1.1 mcg/kg/min, 134.7 mls/hr Documented by: [id number] Titration: 10/31/19 10:07 Dose: 0.9 mcg/kg/min, 110.2 mls/hr Documented by: [id number] Titration: 10/31/19 09:57 Dose: 0.7 mcg/kg/min, 85.7 mls/hr Documented by: [id number] Admin: 10/31/19 09:25 Dose: 0.5 mcg/kg/min, 61.2 mls/hr Documented by: [id number] Cosigned by: [id number] Vasopressin 20 units/ Sodium (Chloride) 101 mls @ 363.6 mls/hr IV .Q17M SUZANNE Stop: 10/31/19 13:15 Last Admin: 10/31/19 11:55 Dose: 1.2 unit/min, 363.6 mls/hr Documented by: [id number] Cosigned by: [id number] Infusion: 10/31/19 11:55 Dose: 0.04 unit/min, 12.1 mls/hr Documented by: [id number] Cosigned by: [id number] Admin: 10/31/19 09:25 Dose: 0.04 unit/min, 12.1 mls/hr Documented by: [id number] Cosigned by: [id number] Ondansetron HCl (Zofran) 4 mg IV ONE STA Stop: 10/31/19 07:25 Last Admin: 10/31/19 07:51 Dose: 4 mg Documented by: [id number] Critical Care Time Critical Care Time: Yes I have personally spent greater than 60 minutes of critical care time in the direct management of this patient. This includes bedside care, interpretation of diagnostic studies, and testing, discussion with consultants, patient, and family members, and other required patient management activities. This 60 minutes is in excess of all separately billable procedures. Medical Decision Making Differential Diagnosis Differential diagnosis of this patient's presentation includes acute GI bleed, bowel obstruction, mesenteric ischemia, supratherapeutic anticoagulation, sepsis, intracranial hemorrhage, stroke Medical Records Attestation: I reviewed the patient's medical records. Home Medications Current Medication List: was personally reviewed by me Laboratory Data Attestation: I reviewed the patient's lab results. Result diagrams: 10/31/19 07:10 10/31/19 07:10 Lab Results 10/31/19 10/31/19 10/31/19 Range/Units 07:10 07:10 07:10 WBC 7.11 (4.8-10.8) K/uL RBC 4.25 (4.2-5.4) M/uL Hgb 13.4 (12.0-16.0) g/dL POC Hgb (12.0-16.0) g/dl Hct 42.7 (37-47) % POC Hct (37-47) % MCV 100.5 H (80-100) fL MCH 31.5 (25-34) pg MCHC 31.4 L (32-36) g/dL RDW Std Deviation 60.7 H (36.4-46.3) fL RDW Coeff of Genaro 16.8 H (11.5-14.5) % Plt Count 188 (130-400) K/uL MPV 11.3 H (7.4-10.4) fL Immature Gran % (Auto) 0.7 % Neut % (Auto) 81.7 % Lymph % (Auto) 14.8 % Charles % (Auto) 2.7 % Eos % (Auto) 0.0 % Baso % (Auto) 0.1 % Immature Gran # (Auto) 0.05 H (0.00-0.02) K/uL Neut # (Auto) 5.81 (1.4-6.5) K/uL Lymph # (Auto) 1.05 L (1.2-3.4) K/uL Charles # (Auto) 0.19 (0.11-0.59) K/uL Eos # (Auto) 0.00 (0-0.5) K/uL Baso # (Auto) 0.01 (0-0.2) K/uL Absolute Nucleated RBC 0.20 H (0-0) K/uL Nucleated RBC % (auto) 2.9 % Polychromasia 1+ PT 14.1 H (9.0-12.0) Seconds INR 1.4 H (0.9-1.1) APTT 27.0 (21.0-31.0) Seconds PTT Ratio 1.0 POC Sodium (135-144) mmol/L Sodium (136-145) mmol/L POC Potassium (3.3-5.0) mmol/L Potassium (3.5-5.1) mmol/L POC Chloride (101-112) mmol/L Chloride (98-107) mmol/L Carbon Dioxide (21-32) mmol/L POC Total CO2 (24-31) mEq/l Anion Gap (3-11) POC Anion Gap (16-25) mmol/L POC BUN (7-18) mg/dl BUN (7-18) mg/dl Creatinine (0.6-1.2) mg/dl POC Creatinine (0.6-1.3) mg/dl Est Cr Clr Drug Dosing Est GFR ( Amer) Est GFR (Non-Af Amer) BUN/Creatinine Ratio (10-20) Glucose (70-99) mg/dl POC Glucose (other) (70-99) mg/dl Calcium (8.5-10.1) mg/dl POC Ioniz Calcium Ghulam (1.12-1.32) mmol/l Total Bilirubin (0.2-1) mg/dl AST (15-37) U/L ALT (12-78) U/L Alkaline Phosphatase (45-117) U/L Total Protein (6.4-8.2) gm/dl Albumin (3.4-5.0) gm/dl Globulin (2.5-4.0) gm/dl Albumin/Globulin Ratio (0.9-2) Specimen Hemolysis POC Stool Occult Blood (Negative) Blood Type AB Positive Antibody Screen NEGATIVE Crossmatch See Detail 10/31/19 10/31/19 10/31/19 Range/Units 07:10 07:11 08:25 WBC (4.8-10.8) K/uL RBC (4.2-5.4) M/uL Hgb (12.0-16.0) g/dL POC Hgb 13.9 (12.0-16.0) g/dl Hct (37-47) % POC Hct 41 (37-47) % MCV (80-100) fL MCH (25-34) pg MCHC (32-36) g/dL RDW Std Deviation (36.4-46.3) fL RDW Coeff of Genaro (11.5-14.5) % Plt Count (130-400) K/uL MPV (7.4-10.4) fL Immature Gran % (Auto) % Neut % (Auto) % Lymph % (Auto) % Charles % (Auto) % Eos % (Auto) % Baso % (Auto) % Immature Gran # (Auto) (0.00-0.02) K/uL Neut # (Auto) (1.4-6.5) K/uL Lymph # (Auto) (1.2-3.4) K/uL Charles # (Auto) (0.11-0.59) K/uL Eos # (Auto) (0-0.5) K/uL Baso # (Auto) (0-0.2) K/uL Absolute Nucleated RBC (0-0) K/uL Nucleated RBC % (auto) % Polychromasia PT (9.0-12.0) Seconds INR (0.9-1.1) APTT (21.0-31.0) Seconds PTT Ratio POC Sodium 145 H (135-144) mmol/L Sodium 147 H (136-145) mmol/L POC Potassium 4.2 (3.3-5.0) mmol/L Potassium 4.3 (3.5-5.1) mmol/L POC Chloride 109 (101-112) mmol/L Chloride 110 H (98-107) mmol/L Carbon Dioxide 21 (21-32) mmol/L POC Total CO2 21 L (24-31) mEq/l Anion Gap 16.0 H (3-11) POC Anion Gap 20.0 (16-25) mmol/L POC BUN 31 H (7-18) mg/dl BUN 29 H (7-18) mg/dl Creatinine 1.20 (0.6-1.2) mg/dl POC Creatinine 0.8 (0.6-1.3) mg/dl Est Cr Clr Drug Dosing Not Reportable Est GFR ( Amer) 46.7 Est GFR (Non-Af Amer) 40.3 BUN/Creatinine Ratio 23.9 H (10-20) Glucose 236 H (70-99) mg/dl POC Glucose (other) 234 H (70-99) mg/dl Calcium 9.1 (8.5-10.1) mg/dl POC Ioniz Calcium Ghulam 1.11 L (1.12-1.32) mmol/l Total Bilirubin 1.1 H (0.2-1) mg/dl AST 77 H (15-37) U/L ALT 31 (12-78) U/L Alkaline Phosphatase 147 H (45-117) U/L Total Protein 6.3 L (6.4-8.2) gm/dl Albumin 1.6 L (3.4-5.0) gm/dl Globulin 4.7 H (2.5-4.0) gm/dl Albumin/Globulin Ratio 0.3 L (0.9-2) Specimen Hemolysis POC Stool Occult Blood Positive A (Negative) Blood Type Antibody Screen Crossmatch 10/31/19 Range/Units 09:05 WBC (4.8-10.8) K/uL RBC (4.2-5.4) M/uL Hgb (12.0-16.0) g/dL POC Hgb 9.9 L (12.0-16.0) g/dl Hct (37-47) % POC Hct 29 L (37-47) % MCV (80-100) fL MCH (25-34) pg MCHC (32-36) g/dL RDW Std Deviation (36.4-46.3) fL RDW Coeff of Genaro (11.5-14.5) % Plt Count (130-400) K/uL MPV (7.4-10.4) fL Immature Gran % (Auto) % Neut % (Auto) % Lymph % (Auto) % Charles % (Auto) % Eos % (Auto) % Baso % (Auto) % Immature Gran # (Auto) (0.00-0.02) K/uL Neut # (Auto) (1.4-6.5) K/uL Lymph # (Auto) (1.2-3.4) K/uL Charles # (Auto) (0.11-0.59) K/uL Eos # (Auto) (0-0.5) K/uL Baso # (Auto) (0-0.2) K/uL Absolute Nucleated RBC (0-0) K/uL Nucleated RBC % (auto) % Polychromasia PT (9.0-12.0) Seconds INR (0.9-1.1) APTT (21.0-31.0) Seconds PTT Ratio POC Sodium 146 H (135-144) mmol/L Sodium (136-145) mmol/L POC Potassium 3.8 (3.3-5.0) mmol/L Potassium (3.5-5.1) mmol/L POC Chloride 112 (101-112) mmol/L Chloride (98-107) mmol/L Carbon Dioxide (21-32) mmol/L POC Total CO2 17 L (24-31) mEq/l Anion Gap (3-11) POC Anion Gap 22.0 (16-25) mmol/L POC BUN 26 H (7-18) mg/dl BUN (7-18) mg/dl Creatinine (0.6-1.2) mg/dl POC Creatinine 0.8 (0.6-1.3) mg/dl Est Cr Clr Drug Dosing Est GFR ( Amer) Est GFR (Non-Af Amer) BUN/Creatinine Ratio (10-20) Glucose (70-99) mg/dl POC Glucose (other) 204 H (70-99) mg/dl Calcium (8.5-10.1) mg/dl POC Ioniz Calcium Ghulam 1.09 L (1.12-1.32) mmol/l Total Bilirubin (0.2-1) mg/dl AST (15-37) U/L ALT (12-78) U/L Alkaline Phosphatase (45-117) U/L Total Protein (6.4-8.2) gm/dl Albumin (3.4-5.0) gm/dl Globulin (2.5-4.0) gm/dl Albumin/Globulin Ratio (0.9-2) Specimen Hemolysis POC Stool Occult Blood (Negative) Blood Type Antibody Screen Crossmatch Imaging Data Attestation: I personally reviewed and interpreted this imaging study as follows: Radiologist's Impression: XR chest 1V portable HISTORY: 89 years-old Female post ETT acute respiratory failure COMPARISON: Chest radiograph 01/21/2010 TECHNIQUE: Portable supine AP view of the chest FINDINGS: Cardiac silhouette is enlarged, unchanged. Pulmonary vascular congestion with extensive mixed bilateral interstitial and alveolar opacities. Trace pleural effusions. Patient is slightly rotated. Mild right diaphragmatic elevation. No pneumothorax. Endotracheal tube terminates 1.0 cm superior to the oswaldo. Degenerative changes of the shoulders and spine. Moderate to marked gaseous distention of the stomach. IMPRESSION: 1. Endotracheal tube overlies the midline, 1.0 cm superior to the oswaldo. Additionally, there is gaseous distention of the stomach. Confirmation of tracheal positioning recommended. 2. Cardiomegaly with extensive mixed bilateral interstitial and alveolar opacities suggestive of interstitial and alveolar pulmonary edema versus multifocal pneumonia. 3. Trace pleural effusions. ACT 112: Negative or not required by law. The above report was generated using voice recognition software. It may contain grammatical, syntax or spelling errors. Electronically signed by: Juan Ramon Fuller M.D. 10/31/2019 7:45 AM Dictated: 10/31/19 0741 Transcribed: 10/31/[address] head/brain wo con CLINICAL HISTORY: 89 years-old Female with AMS. Acutely altered mental status TECHNIQUE: Multiple axial CT images of the head were obtained without contrast. A dose lowering technique was utilized adhering to the principles of ALARA. COMPARISON: Head CT 01/21/2010 FINDINGS: No acute intracranial hemorrhage, midline shift, intracranial mass, hydrocephalus, or abnormal extra-axial collection. Age-related involutional changes. 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 Mild associated ex vacuo ventriculomegaly of the posterior horn left lateral ventricle. Hypodensity with blurring of the jose-white interface involves the left parietal lobe on image 16 series 2, new from comparison. This overall measures up to approximately 4.8 x 3.4 cm. Encephalomalacia is also noted within this distribution. The calvarium is intact. Mild mucosal thickening with small air-fluid level of the right maxillary sinus compatible with acute sinusitis. Trace mastoid effusions. Soft tissues and orbits are unremarkable. Prior bilateral lens replac ement. IMPRESSION: 1. Moderate area of decreased attenuation involving the left parietal lobe with blurring of the jose-white interface is new from comparison and is suspicious for an acute or subacute infarct superimposed on a chronic infarct. Correlate with clinical presentation. 2. 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 ACT 112: Negative or not required by law. The above report was generated using voice recognition software. It may contain grammatical, syntax or spelling errors. Electronically signed by: Juan Ramon Fuller M.D. 10/31/2019 11:16 AM Dictated: 10/31/19 1104 Transcribed: 10/31/[address] WITH IV CONTRAST CT DOSE: 1544.36 mGy.cm HISTORY: Acute GI bleed. GIB TECHNIQUE: Multiaxial CT images of the abdomen and pelvis were performed following the IV administration of 94 cc of Optiray 320, A dose lowering technique was utilized adhering to the principles of ALARA. COMPARISON STUDY: None. FINDINGS: Small right greater than left pleural effusions with right greater left bibasilar consolidation, groundglass opacities and air bronchograms. Study is limited secondary to positioning of the upper extremities and mild motion artifact. No pneumatosis or pneumoperitoneum. Imaged inferior cardiac chambers are mildly enlarged. Extensive coronary artery calcifications. Scattered calcified granulomata of the spleen. Mild thickening of the adrenal glands suggests hyperplasia. Mild generalized pancreatic atrophy. Cholelithiasis without CT evidence of acute cholecystitis or biliary ductal dilation. Heterogeneous appearance of the liver with a mottled appearance and probable hepatic steatosis. Patency of the hepatic and portal veins. Diffuse cortical thinning of the kidneys. There are several scattered small subcentimeter hypodensities of the kidneys and just a probable cysts. Renal sinus cysts are also present without hydronephrosis. Decompressed urinary bladder with Jay catheter in place. Prominence of the uterine fundus is suggestive of fibroid uterus. No adnexal mass lesion. Extensive mixed plaque of the abdominal aorta without aneurysm. 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 Additionally, there is occlusion versus high-grade stenosis involving the right profunda femoris artery. Catheter of the left thigh is noted with distal tip terminating in the left external iliac vein. No adenopathy. Mild wall thickening of the distal esophagus. An enteric tube is present with distal tip terminating within the gastric antrum. Small to moderate duodenal diverticulum. Multiple prominent loops of air and fluid-filled small bowel are noted measuring up to 2.8 cm. No small bowel obstruction. Several loops of decompressed large bowel with air-fluid levels of the right hemicolon suggestive of diarrheal illness. The appendix is not definitively seen. No bowel thickening. No ascites or mesenteric inflammation. Degenerative changes of the spine, pelvis and hips. IMPRESSION: 1. Right greater than left small pleural effusions with bibasilar consolidative and groundglass opacities suggestive of multifocal pneumonia admixed with atelectasis. 2. Multiple prominent loops of small bowel with air-fluid levels is suggestive of enteritis or ileus. There is no small bowel obstruction or pneumoperitoneum. 3. Heterogeneous appearance of the liver with probable hepatic steatosis. Correlate with LFTs. 4. Cholelithiasis without sonographic evidence of acute cholecystitis. 5. Enteric tube distal tip terminates within the gastric antrum. 6. Venous catheter of the left external iliac vein. 7. Additional findings as above. ACT 112: Negative or not required by law. The above report was generated using voice recognition software. It may contain grammatical, syntax or spelling errors. Electronically signed by: Juan Ramon Fuller M.D. 10/31/2019 11:29 AM Dictated: 10/31/19 1118 Transcribed: 10/31/19 111 ECG Data Attestation: I personally reviewed and interpreted this ECG as follows: Indication: + altered mental status and + vomiting (GI bleed) Rate (beats per minute): 137 Rhythm: + atrial fibrillation ECG Intervals/blocks: + Left bundle branch block (Incomplete) and + Prolonged QT (QTC 543) ECG [place]: + Normal ECG ST segments: + T-wave inversions (Lateral) and + repolarization abnormalities ECG Findings: no PACs and no PVCs Blood Pressure Blood Pressure Findings: Low blood pressure Blood Pressure Disposition: further management by hospitalist (ICU) MDM Narrative This patient was evaluated and appeared to be critically ill. Patient is noted to be hypoxic and hypotensive. There is no documentation of anticoagulation. The patient is in a rapid atrial fibrillation. IV fluids were initiated. Peripheral access was obtained but difficult. Patient received a 1 L bolus of normal saline solution with moderate improvement in vital signs. Patient was having significant respiratory difficulty and vomiting, BiPAP was discontinued and the patient was intubated. Please see my notes above. Patient's blood pressure intermittently dropped. Patient was typed and crossed and transfused with 1 L of PRBCs. A left femoral central line was placed under sterile technique. Please see my note above. CT imaging of the head was performed and indicates the possibility of an acute or subacute infarct. CT imaging of the abdomen was performed and is read as above. Case was discussed with Dr. Young of the hospitalist service, Dr. Martínez of gastroenterology as well as Dr. Lorenzo of the ICU. I did place a phone call to the patient's daughter for consent for blood transfusion as well as an update on her mother's status. Impression & Plan GI bleed, Aspiration pneumonitis, Paroxysmal atrial fibrillation, Hypotension Discharge Plan Visit Data *Final* Discharge Date/Time: 10/31/19 10:45 Chief Complaint: GI Assessment ED Provider: Stephanie Mcgowan Discharge Problem: GI bleed, Aspiration pneumonitis, Paroxysmal atrial fibrillation, Hypotension Patient Disposition: Admitted As Inpatient Discharge Instructions Interventions: ED Discharge Assessment Last Done: 10/31/19 10:45 Discharge Problem: GI bleed Qualifiers: GI bleed type/associated pathology: gastrointestinal hemorrhage with hematemesis Qualified Code(s): K92.0 - Hematemesis Hypotension Qualifiers: Hypotension type: hypotension due to hypovolemia Qualified Code(s): I95.89 - Other hypotension
--- NOTE | 2019-10-31 14:35 | Critical Care Consultation ---
Date of Consultation October 31, 2019 Assessment & Plan (1) Aspiration pneumonitis: Reason Critically Ill: 89-year-old female with past significant medical history for CVA with residual right-sided deficit who presents with multisystem organ failure likely secondary to aspiration pneumonitis and got active gastrointestinal hemorrhage. PLAN: Neuro: Encephalopathy acute -Likely secondary to shock state Resp: Aspiration pneumonitis Acute hypoxic hypercapnic respiratory failure secondary to aspiration pneumonitis -Intubated in the ED CV: Hemorrhagic shock Acute arterial hypotension -On higher-dose vasopressin for gastrointestinal bleeding -Phenylephrine for hypotension -Volume expansion with blood and fluids -Required third pressor: Levophed Fluids/Renal: Acute kidney injury -Secondary to acidemia and hypotension Metabolic acidosis -Secondary to hemorrhagic shock ID: Hypothermic -History of E. coli ESBL urinary tract infections GI/Nutrition: Gastrointestinal hemorrhage -Upper endoscopy performed by GI -No obvious abnormality seen on upper EGD, would require transfer to tertiary care for possible IR intervention -Too unstable to tolerate transfer at this time Heme: Acute blood loss anemia secondary to gastrointestinal hemorrhage -Received 3 units packed red blood cells Disseminated intravascular coagulation Elevated INR -Clinically she started to ooze at all IV puncture sites -Received 2 units FFP in an attempt for 4 to 2-1 transfusion of blood product -Discussed with family and likely to proceed with comfort care and will hold additional blood product at this time DVT prophylaxis: Contraindicated other than mechanical: SCDs Endocrine: ICU hyperglycemia protocol Diabetes mellitus type 2 Vascular access: Femoral central triple-lumen placed in emergency department, right axillary artery arterial line Code Status: DNR in event of cardiac arrest Disposition: ICU level care (2) Hemorrhagic shock: (3) Elevated INR: (4) Paroxysmal atrial fibrillation: (5) Hypothermia: (6) Hypotension: (7) CVA (cerebral vascular accident): (8) History of CVA with residual deficit: (9) DIC (disseminated intravascular coagulation): (10) Gastrointestinal hemorrhage: (11) Acidosis, lactic: (12) DNR (do not resuscitate) discussion: (13) DNR (do not resuscitate): History of Present Illness Reason for Consultation: Multisystem organ failure, hematemesis probable aspiration, hypoxia, hypotension Requesting Physician: Roslyn Attending Physician: Femi Young MD History of Present Illness Patient is an 89-year-old female who was transferred to [facility] emergency department from [facility]. She was found to be profoundly hypothermic, hypotensive, hypoxic and having hematemesis. She was intubated in the emergency department, in discussions with the emergency medicine attending there was evidence of probable aspiration which occurred prior to intubation which certainly could contribute to significant hypoxia in the setting of a chemical pneumonitis. A femoral central line was obtained she was started on a fluid bolus according to sepsis guidelines as well as a PPI infusion. Emergency department contacted GI, GI was going to attempt a EGD in the emergency department given the acuity of the situation however she was undergoing resuscitation and was still not within a reasonable limit to perform endoscopy. I discussed the patient's condition with her daughter, and consideration of the likelihood of iatrogenic injury if she were to undergo CPR in event of cardiac arrest the decision was made to transition the patient to DNR in event of cardiac arrest. Ongoing resuscitative measures were undertaken, the patient had received 3 units packed red blood cells, during my bedside evaluation the patient appeared to be going into DIC and was oozing from all venipuncture sites and around all catheters, we administered 2 units of FFP in addition. She was placed on a bear hugger, considerations were given to placing a chili catheter and actually attempting to rewarm the patient. 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 Blood gas testing revealed severe hypoxemia and acidemia, the patient is not producing urine, she is experiencing rhythm disturbances and I do believe the patient is actively dying. I contacted the patient's family and advised them we can accommodate to family members for 20 minutes at a time given the global pandemic which is ongoing. They will present to the bedside. Allergies Allergy/AdvReac Type Severity Reaction Status Date / Time aspirin Allergy Mild Verified 10/31/19 08:38 Sulfa (Sulfonamide Allergy Unknown unknown Verified 10/31/19 08:38 Antibiotics) trimethoprim Allergy Unknown . Verified 10/31/19 08:38 Home Medications Home Medications Medication Instructions Recorded Confirmed Type cholecalciferol (vitamin D3) 50 mcg PO DAILY 10/31/19 10/31/19 History [Vitamin D3] docusate sodium 100 mg PO DAILY 10/31/19 10/31/19 History duloxetine 20 mg PO DAILY 10/31/19 10/31/19 History ferrous sulfate 325 mg PO BID 10/31/19 10/31/19 History folic acid 1 mg PO DAILY 10/31/19 10/31/19 History insulin detemir U-100 [Levemir 5 unit SUBCUT HS 10/31/19 10/31/19 History U-100 Insulin] insulin lispro [Humalog U-100 1 sliding scale dose SUBCUT 10/31/19 10/31/19 History Insulin] USEASDIRECTD lisinopril 5 mg PO DAILY 10/31/19 10/31/19 History metoclopramide HCl 5 mg PO ACHS 10/31/19 10/31/19 History metoprolol tartrate 25 mg PO DAILY 10/31/19 10/31/19 History ondansetron HCl [Zofran] 4 mg PO Q6H PRN 10/31/19 10/31/19 History sennosides-docusate sodium 1 tab-cap PO BID 10/31/19 10/31/19 History [Senokot-S] sodium chloride [Deep Sea Nasal] 2 spray INTRANASAL BID 10/31/19 10/31/19 History Patient History Medical History (Updated 10/31/19 @ 14:15 by Crispin Bird DO) GI bleed (Inactive) Social History Communication Ability: On vent Current Living Situation: Long-Term Feels Safe at Home: Yes Smoking Status: Unknown if ever smoked Review of Systems Review of Systems: Unobtainable due to endotracheal tube Physical Exam Physical Exam: General: Glascow Coma Scale: Eyes: 1, Verbal 1T, Motor 1, Total 3T Skin: Cool, livedo reticularis present Head: Atraumatic Ears, nose, mouth and throat: Obscured by endotracheal tube Cardiovascular: Decreased peripheral perfusion, increased capillary refill Respiratory: Coarse sounds bilaterally Gastrointestinal: No obvious hepatosplenomegaly, NG tube is present with dark coffee-ground contents being suctioned Musculoskeletal: No obvious deformity Results & Data Results & Data (MN) Vital Signs (Past 12 Hours) Vital Signs Temp Pulse Pulse Resp BP BP Pulse Ox 10/31/19 13:47 20 10/31/19 13:31 34.0 C L 40 L 16 72/32 L 73 L 10/31/19 13:19 34 C L 52 L 16 94/45 L 10/31/19 13:13 33.4 C L 69 16 94/45 L 90 10/31/19 13:07 65 17 94/54 L 10/31/19 12:55 34.0 C L 74 18 94/45 L 90 10/31/19 11:00 77 26 H 92 10/31/19 10:45 63/41 L 86 L 10/31/19 10:44 62/40 L 88 L 10/31/19 10:40 84 63/40 L 89 L 10/31/19 10:38 82 10/31/19 10:37 74 102/79 10/31/19 10:31 72 56/39 L 10/31/19 10:30 75 10/31/19 10:26 63 46/34 L 91 10/31/19 10:24 33.7 C L 72 23 46/34 L 88 L 10/31/19 10:21 63 49/30 L 90 10/31/19 10:15 63 48/34 L 92 10/31/19 10:10 64 47/32 L 88 L 10/31/19 10:09 33.6 C L 64 21 64/31 L 89 L 10/31/19 10:06 68 64/31 L 91 10/31/19 10:00 68 59/38 L 92 10/31/19 09:47 33.9 C L 66 20 66/37 L 93 10/31/19 09:45 64 66/37 L 93 10/31/19 09:40 64 57/37 L 93 10/31/19 09:37 64 57/35 L 95 10/31/19 09:36 63 49/35 L 95 10/31/19 09:30 63 52/33 L 95 10/31/19 09:25 63 54/35 L 96 10/31/19 09:15 66 54/36 L 94 10/31/19 09:10 64 55/37 L 93 10/31/19 09:05 63 53/36 L 88 L 10/31/19 09:00 59 L 54/35 L 92 10/31/19 08:57 87 19 55/37 L 90 10/31/19 08:56 88 55/37 L 89 L 10/31/19 08:45 85 60/44 L 100 10/31/19 08:40 84 62/44 L 100 10/31/19 08:35 96 H 102 H 16 75/36 L 75/36 L 99 10/31/19 08:32 34.9 C L 10/31/19 08:30 94 H 65/48 L 100 10/31/19 08:25 34.9 C L 91 H 71/45 L 100 10/31/19 08:16 96 H 99/57 L 98 10/31/19 08:10 98 H 85/56 L 100 10/31/19 08:05 87 87/56 L 100 10/31/19 08:00 102 H 74/56 L 100 10/31/19 07:55 99 H 82/58 L 100 10/31/19 07:53 104 H 16 99 10/31/19 07:51 99 H 93 H 19 67/52 L 67/52 L 99 10/31/19 07:31 125 H 21 52/35 L 93 10/31/19 07:25 124 H 16 95 10/31/19 07:19 117 H 20 95 10/31/19 07:00 134 H 25 H Coding Level of Care Code Critical Care ea addt'l 30 min Diagnoses Aspiration pneumonitis J69.0 Hemorrhagic shock R57.8 Elevated INR R79.1 Paroxysmal atrial fibrillation I48.0 Hypothermia T68.XXXA Hypotension I95.89; E86.1 Hypotension type: hypotension due to hypovolemia CVA (cerebral vascular accident) I63.9 History of CVA with residual deficit I69.30 DIC (disseminated intravascular coagulation) D65 Gastrointestinal hemorrhage K92.2 Acidosis, lactic E87.2 DNR (do not resuscitate) discussion Z71.89 DNR (do not resuscitate) Z66 Time Spent (min) 140 Comment I have personally spent 140 minutes of critical care time in the direct management of this patient. This is a life/limb threatening event. This includes time spent evaluating patient, direct bedside care, chart review, placing orders, interpretation of diagnostic studies, discussion with consultants, patient, and/or family members regarding treatment decisions, as well as other required patient management activities. This time is exclusive of all separately billable procedures, and teaching time and separate from and in addition to any other critical care service time. (1) Hypotension Hypotension type: hypotension due to hypovolemia Qualified Code(s): I95.89 - Other hypotension; E86.1 - Hypovolemia
--- NOTE | 2019-10-31 14:37 | Procedure Note ---
Procedure Note Date of Service October 31, 2019 Procedure date: Noted above Procedure: Right radial artery cannulation Pre-procedure Diagnosis: Need for invasive monitoring, hypotension/frequent blood draws Post-procedure Diagnosis: same as above Prior to Procedure: Informed Consent: Emergent consent implied Attending Staff: Mone Bird DO Skin Prep: Chlorhexidine Anesthesia: 3 mL 1% lidocaine without epinephrine The identity of the patient was confirmed and a bedside time out was performed. Description of Procedure: After sterile prep and sterile drape utilizing standard sterile technique the superficial skin of the right radial artery was anesthetized. The target artery was identified via dynamic ultrasound guidance and entered with a 20-gauge arrow Angiocath. Pulsatile red blood return was noted. Via modified Seldinger technique the self-contained guidewire was not able to be advanced into the lumen of the vessel, this procedure was ultimately discontinued. Complications: None Estimated blood loss: Trace Patient tolerated the procedure well. Coding CPT Codes Tubes, Drains, and Vasc Access - Tubes, Drains, and Vasc Access: [id number] Place Catheter In Artery ([id number]) [facility] [place] Procedure Codes (Charges) Tubes, Drains, and Vasc Access Procedure 1: Tubes, Drains, and Vasc Access: [id number] Place Catheter In Artery (Discontinued right sided procedure)
--- NOTE | 2019-10-31 14:40 | Procedure Note ---
Procedure Note Date of Service October 31, 2019 Procedure date: Noted above Procedure: Right axillary artery cannulation Pre-procedure Diagnosis: Need for invasive monitoring, hypotension/frequent blood draws Post-procedure Diagnosis: same as above Prior to Procedure: Informed Consent: Emergent consent implied Attending Staff: Mone Bird DO Skin Prep: Chlorhexidine Anesthesia: 3 mL 1% lidocaine without epinephrine The identity of the patient was confirmed and a bedside time out was performed. Description of Procedure: After sterile prep and sterile drape utilizing standard sterile technique the superficial skin of the right axillary artery was anesthetized. The target artery was identified via dynamic ultrasound guidance and entered with needle. Pulsatile red blood return was noted. Via modified Seldinger technique guidewire was inserted into the artery. A small skin celestina was made and a 20-gauge angiocatheter 12 cm arterial line was inserted and secured via silk suture. A sterile dressing was then applied. Complications: None Estimated blood loss: Trace Patient tolerated the procedure well. Procedure Date: October 31, 2019 Procedure: Procedural Ultrasound Indication: Arterial access for invasive monitoring Attending: Mone Bird DO Artery visualized: Yes Pulsatility of artery: Yes Artery patent: Yes Line confirmed in artery with ultrasound: Yes Impression: Successful arterial cannulation Images obtained are saved for permanent record Coding CPT Codes Tubes, Drains, and Vasc Access - Tubes, Drains, and Vasc Access: [id number] Place Catheter In Artery ([id number]) Tubes, Drains, and Vasc Access - Tubes, Drains, and Vasc Access: [id number] Ultras ound Guidance For Vascular ([id number]) [facility] [place] Procedure Codes (Charges) Tubes, Drains, and Vasc Access Procedure 1: Tubes, Drains, and Vasc Access: [id number] Place Catheter In Artery Procedure 2: Tubes, Drains, and Vasc Access: [id number] Ultrasound Guidance For Vascular
--- NOTE | 2019-10-31 15:05 | Death Pronouncement Note ---
Date of Service October 31, 2019 Pronouncement Note Admission Date Admission Date: October 31, 2019 Date and Time of Date of : 10/31/19 Time of : 15:07 PCOD Preliminary cause of : Multiple organ dysfunction syndrome Contributing Factors (1) Hemorrhagic shock: (2) Gastrointestinal hemorrhage: (3) Elevated INR: (4) Aspiration pneumonitis: (5) Paroxysmal atrial fibrillation: (6) Hypothermia: (7) History of CVA with residual deficit: (8) DIC (disseminated intravascular coagulation): (9) Acidosis, lactic: Additional Data Confirmation of : no pulse, no respirations, no heart sounds, pupils fixed and dilated and other (No cardiac activity on bedside monitor) Family: at bedside (Patient's daughter and son both presented to bedside) Attending/PCP notified?: Yes Attending physician: Femi Young MD Was code activated?: No Autopsy requested?: No rating examiner notified?: Yes Organ bank notified?: Yes Advance directives: No Coding Level of Care Code None Diagnoses Hemorrhagic shock R57.8 Gastrointestinal hemorrhage K92.2 Elevated INR R79.1 Aspiration pneumonitis J69.0 Paroxysmal atrial fibrillation I48.0 Hypothermia T68.XXXA History of CVA with residual deficit I69.30 DIC (disseminated intravascular coagulation) D65 Acidosis, lactic E87.2
--- NOTE | 2019-10-31 15:35 | Discharge Summary ---
Date of Service October 31, 2019 Admission HPI Per Admitting Provider Darren Rangel is an 89 year old female with resident of [facility] who presented to the ER with concerns for hematemesis and hypoxia. Unable to get a history from patient who was intubated and sedated in the ER therefore history obtained from [facility] hand over and ER physician. She has been having emesis for approximately 1 week. HIDA scan - sludge and thickened gall bladder. Found this morning alert and orientated but unable to understand her talking. O2 sats were 74% on room air. Concern about aspirating. She is usually on a thickened liquid diet. Around 4am this morning she had coffee ground emesis. EMS noted patient to be in A. fib in 130s. She was placed on CPAP. In the ER she was obtunded, hypoxic and hypotensive. Sedated and intubated and given 1.5L bolus of normal saline. However despite this her blood pressure remained 60/44. Patient seen around the same time as Dr Brid who will be starting patient on vasopressors. 1 unit blood transfusion ordered by ER when seen. Known prior CVA. Admission Exam Per Admitting Provider Constitutional: + obese; no acute distress Eyes: + conjunctival abnormality (pale); normal pupil size (pupils equal) Neck: trachea midline intubated Respiratory: Auscultation: + rhonchi (b/l, equal breath sounds) Cardiovascular: Rate/Rhythm: regular rhythm and + tachycardic Heart Sounds: no murmur Extremities: + abnormal capillary refill (> 4 seconds peripheral and central) and no pedal edema Gastrointestinal (Abdomen): Inspection/Auscultation: + abnormal bowel sounds (absent) Percussion/Palpation: abdomen soft Skin: + pallor (cyanotic) Neurologic: + not awake unable to assess full neuro exam due to sedation Psychiatric: Orientation: + not alert Principal Diagnosis Multiple organ dysfunction syndrome Discharge Exam See H&P exam Discharge Data Allergies Allergy/AdvReac Type Severity Reaction Status Date / Time aspirin Allergy Mild Verified 10/31/19 08:38 Sulfa (Sulfonamide Allergy Unknown unknown Verified 10/31/19 08:38 Antibiotics) trimethoprim Allergy Unknown . Verified 10/31/19 08:38 Consultations 10/31/19 08:34 ED Decision to Admit Stat 10/31/19 08:37 Consult Case Coordinator Stat 10/31/19 08:57 Consult Gastroenterology Stat 10/31/19 11:26 Consult Case Management - Discharge Planning Routine Procedures Performed Operation Date: 10/31/19 13:00 Actual Procedures p Esophagogastroduodenoscopy - Riley Martínez Ordered Studies 10/31/19 09:08 CT head/brain wo con Stat 10/31/19 09:19 CT abd pelvis IV con only Stat 10/31/19 12:09 US point of care ultrasound Routine Hospital Course (1) Hemorrhagic shock: Patient obtunded, hypotensive and hypoxic on arrival at ER. Concern for hematemesis, aspiration and large GI bleed from history and subsequent hemorrhagic shock. She was intubated, transfused blood and fresh frozen plasma and started on vasopressors. Unfortunately despite these measures she did not produce any urine; consistent with acute kidney injury. She also started to ooze at all her puncture sites and suspected to have developed DIC. ABG showed severe hypoxemia and acidemia. At that time her care was discussed with her family and they decided to appropriately withdraw care. (2) Hypothermia: (3) Aspiration pneumonitis: (4) Elevated INR: (5) Paroxysmal atrial fibrillation: (6) Type 2 diabetes mellitus: Total Time Total Time Spent Total Time Spent (In Minutes): 15 Total Time Includes: Communication With Other Providers (Dr Bird) Discharge Plan Discharge Items Patient Disposition: Reason For Visit: HEMATEMASIS Discharge Diagnosis: Multiple organ failure syndrome Hemorrhagic shock Acute GI bleed Follow-up/Referrals: Hu Miller [Primary Care Provider] - Sandy Attending Provider Instructions: None Stand-Alone Forms: [facility] Admission Data Admit Date/Time: 10/31/19 09:10 Other Interventions: Discharge Summary Assessment (RN) Last Done: 10/31/19 13:35 Coding Level of Care Code None Diagnoses Hemorrhagic shock R57.8 Hypothermia T68.XXXA Aspiration pneumonitis J69.0 Elevated INR R79.1 Paroxysmal atrial fibrillation I48.0 Type 2 diabetes mellitus E11.9 Comment within 8 hours of admission
--- NOTE | 2019-10-31 17:21 | Electrocardiogram Report ---
Test Reason : Blood Pressure : / mmHG Vent. Rate : 137 BPM Atrial Rate : 136 BPM P-R Int : 000 ms QRS Dur : 110 ms QT Int : 360 ms P-R-T Axes : 000 082 -82 degrees QTc Int : 543 ms Poor data quality, interpretation may be adversely affected Atrial fibrillation with rapid ventricular response Incomplete left bundle block Abnormal ECG When compared with ECG of 21-JAN-2010 09:47, Atrial fibrillation has replaced Sinus rhythm Confirmed by Krishna Souza ([id number]) on 10/31/2019 5:21:28 PM Referred By: REFERRED SELF Confirmed By:Krishna Souza
--- NOTE | 2019-10-31 17:25 | Electrocardiogram Report ---
Test Reason : Blood Pressure : / mmHG Vent. Rate : 084 BPM Atrial Rate : 084 BPM P-R Int : 176 ms QRS Dur : 120 ms QT Int : 430 ms P-R-T Axes : 000 065 154 degrees QTc Int : 508 ms Poor data quality, interpretation may be adversely affected Probable atrial flutter with 3:1 AV conduction Incomplete left bundle block Abnormal ECG When compared with ECG of 31-OCT-2019 07:02, (unconfirmed) Vent. rate has decreased BY 53 BPM T wave inversion no longer evident in Inferior leads Reconfirmed by Krishna Souza ([id number]) on 10/31/2019 5:35:50 PM Referred By: REFERRED SELF Confirmed By:Krishna Souza
--- NOTE | 2019-10-31 17:31 | Electrocardiogram Report ---
Test Reason : Blood Pressure : / mmHG Vent. Rate : 073 BPM Atrial Rate : 073 BPM P-R Int : 174 ms QRS Dur : 120 ms QT Int : 440 ms P-R-T Axes : 000 086 134 degrees QTc Int : 484 ms Probable atrial flutter with 3:1 AV conduction Septal infarct , age undetermined Abnormal ECG When compared with ECG of 31-OCT-2019 08:42, (unconfirmed) Septal infarct is now Present Confirmed by Krishna Souza ([id number]) on 10/31/2019 5:31:20 PM Referred By: REFERRED SELF Confirmed By:Krishna Souza
[2019-10-31] MEDS ORDERED: CALCIUM CHLORIDE 10% 10 ML SYR IV ONE (18:02)
[2019-10-31] MEDS ORDERED: SODIUM BICARB 8.4% INJ 50 MEQ/50 ML SYR IV ONE (18:02)
[2019-10-31] MEDS ORDERED: SUCCINYLCHOLINE CHLORIDE 20 MG/ML 10 ML VIAL IV ONE (18:02)
[2019-10-31] MEDS ORDERED: ETOMIDATE 2 MG/ML 20 ML VIAL IV ONE (18:02)
== END 2019-10-31 18:03 | disposition expired | DRG 208 ==
LOC: ED 06:54 → 1E 09:10